=== PATIENT | female | born 1955 | race African-American/Black ===

== ENCOUNTER 2018-10-29 01:06 | Emergency (ER) | payer OTHER ==
[2018-10-29] MEDS ORDERED: ASPIRIN 81 MG TABLET, CHEWABLE PO ONE (03:42)
--- NOTE | 2018-10-29 03:43 | ER Document Report ---
ED Medical Screen (RME) - General Chief Complaint: Chest Pain Stated Complaint: CHEST PAIN Time Seen by Provider: 10/29/18 03:37 Notes: Patient is a 63-year-old female with chief complaint of waking up to feeling like her heart was beating fast and irregularly, she states she had some discomfort in her chest on the right side of her chest, she states that after arrival to the emergency department the sensation stopped. She denies passing o ut, nausea, diaphoresis, shortness of breath. Past medical history of hypertension, type 2 diabetes, denies cardiac history. Denies any current symptoms. TRAVEL OUTSIDE OF THE [place] IN LAST 30 DAYS: No - Related Data Allergies/Adverse Reactions: No Known Allergies Allergy (Unverified 10/29/18 01:10) Physical Exam - Vital signs Vitals: Temp Pulse Resp BP Pulse Ox 98.2 F 90 18 118/67 98 10/29/18 01:22 10/29/18 01:22 10/29/18 01:22 10/29/18 01:22 10/29/18 01:22 - Cardiovascular Rhythm: Regular, Extrasystoles Heart sounds: S1 appreciated, S2 appreciated Course - Re-evaluation Re-evalutation: I have greeted and performed a rapid initial assessment of this patient. A comprehensive ED assessment and evaluation of the patient, analysis of test results and completion of the medical decision making process will be conducted by additional ED providers. - Vital Signs Vital signs: Temp Pulse Resp BP Pulse Ox 98.2 F 90 18 118/67 98 10/29/18 01:22 10/29/18 01:22 10/29/18 01:22 10/29/18 01:22 10/29/18 01:22
[2018-10-29 04:34] LABS: ABSOLUTE BASOPHILS # (AUTO) 0.1 10^3/uL (0.0-0.2); ABSOLUTE EOSINOPHILS # (AUTO) 0.1 10^3/uL (0.0-0.6); ABSOLUTE LYMPHOCYTES (AUTO) 2.4 10^3/uL (0.5-4.7); ABSOLUTE MONOCYTES (AUTO) 0.6 10^3/uL (0.1-1.4); ABSOLUTE NEUT (AUTO) 5.1 10^3/uL (1.7-8.2); BASOPHILS % (AUTO) 0.7 % (0-2); EOSINOPHILS % (AUTO) 0.8 % (0-6); HEMATOCRIT 34.9 % (36.0-47.0); HEMOGLOBIN 11.6 g/dL (12.0-15.5); LYMPHOCYTES % (AUTO) 29.1 % (13-45); MEAN CORPUSCULAR HEMOGLOBIN 26.4 pg (27.0-33.4); MEAN CORPUSCULAR HGB CONC 33.3 g/dL (32.0-36.0); MEAN CORPUSCULAR VOLUME 79 fl (80-97); MONOCYTES % (AUTO) 7.4 % (3-13); PLATELET COUNT 269 10^3/uL (150-450); RED BLOOD COUNT 4.42 10^6/uL (3.72-5.28); RED CELL DISTRIBUTION WIDTH 14.2 % (11.5-14.0); TOTAL CELLS COUNTED % (AUTO) 100 %; WHITE BLOOD COUNT 8.2 10^3/uL (4.0-10.5)
--- NOTE | 2018-10-29 04:51 | RADIOLOGY REPORT (SQ) ---
EXAM DESCRIPTION: XR CHEST 1 VIEW COMPLETED DATE/TME: 10/29/2018 03:42 CLINICAL HISTORY: 63 years, Female, chest pain COMPARISON: None. NUMBER OF VIEWS: One TECHNIQUE: AP view of the chest LIMITATIONS: None. FINDINGS: The lungs are clear. The heart is normal in size. There is no pneumothorax or pleural effusion. There is no acute fracture IMPRESSION: No acute cardiopulmonary abnormality copyright 2010 [employer]- All Rights Reserved
--- NOTE | 2018-10-29 06:06 | EKG REPORT ---
SEVERITY:- NORMAL ECG - SINUS RHYTHM : Confirmed by: Guru Aguirre MD 29-Oct-2018 06:05:48
[2018-10-29 07:08] LABS: CALCIUM 10.9 mg/dL (8.4-10.2)
[2018-10-29 07:09] LABS: ALBUMIN 4.8 g/dL (3.5-5.0); ANION GAP 17 (5-19); ASPARTATE AMINO TRANSFERASE 61 U/L (14-36); BLOOD UREA NITROGEN 34 mg/dL (7-20); CARBON DIOXIDE 23 mmol/L (22-30); CHLORIDE 100 mmol/L (98-107); GLUCOSE 121 mg/dL (75-110); POTASSIUM 3.4 mmol/L (3.6-5.0); SODIUM 139.9 mmol/L (137-145)
[2018-10-29 07:10] LABS: ALANINE AMINOTRANSFERASE < 3 U/L (9-52); ALKALINE PHOSPHATASE 61 U/L (38-126); BILIRUBIN,TOTAL 0.4 mg/dL (0.2-1.3)
[2018-10-29 07:11] LABS: BILIRUBIN,DIRECT 0.4 mg/dL (0.0-0.4); TOTAL PROTEIN 7.9 g/dL (6.3-8.2)
[2018-10-29 08:04] VITALS: BP 123/64
--- NOTE | 2018-10-29 13:16 | ER Document Report ---
Entered by AZAR MENDENHALL SCRIBE 10/29/18 0616 Acting as scribe for:KEELY BURKETT MD ED General - General Chief Complaint: Chest Pain Stated Complaint: CHEST PAIN Time Seen by Provider: 10/29/18 03:37 Primary Care Provider: SOFIA MORGAN PA-C [Primary Care Provider] - Follow up as needed Information source: Patient, Relative, [facility] Records Notes: 63-year-old female with hypertension, coronary artery disease, and hyperlipidemia the presents to the emergency department today with complaints of heart palpitations that began around midnight last night. Patient states she was asleep and these palpitations woke her up. Patient states the palpitations lasted approximately 20 minutes. Patient's significant other at bedside states he has history of A. fib so he states that he "felt her pulse and it did not seem irregular, just fast", although he did not determine an actual pulse. Patient states she did not go back to sleep after this. Patient also has as sociated left-sided parasternal chest wall pain that is exacerbated with breathing. Patient does not take daily aspirin. TRAVEL OUTSIDE OF THE [place] IN LAST 30 DAYS: No - Related Data Allergies/Adverse Reactions: No Known Allergies Allergy (Verified 10/29/18 04:25) Past Medical History - General Information source: Patient, [facility] Records - Social History Smoking Status: Never Smoker Cigarette use (# per day): No Frequency of alcohol use: None Drug Abuse: None Lives with: Spouse/Significant other Family History: Reviewed & Not Pertinent Patient has suicidal ideation: No Patient has homicidal ideation: No - Past Medical History Cardiac Medical History: Reports: Hx Hypertension Pulmonary Medical History: Reports: Hx Asthma Endocrine Medical History: Reports: Hx Diabetes Mellitus Type 2 Surgical Hx: Negative Review of Systems - Review of Systems Constitutional: No symptoms reported EENT: No symptoms reported Cardiovascular: See HPI, Chest pain, Palpitations, Heart racing Respiratory: See HPI, Hurts to breathe Gastrointestinal: No symptoms reported Genitourinary: No symptoms reported Female Genitourinary: No symptoms reported Musculoskeletal: No symptoms reported Skin: No symptoms reported Hematologic/Lymphatic: No symptoms reported Neurological/Psychological: No symptoms reported -: Yes All other systems reviewed and negative Physical Exam - Vital signs Vitals: Temp Pulse Resp BP Pulse Ox 98.2 F 90 18 118/67 98 10/29/18 01:22 10/29/18 01:22 10/29/18 01:22 10/29/18 01:22 10/29/18 01:22 - Notes Notes: Physical Exam: General: Alert, appears well. HEENT: Normocephalic. Atraumatic. PERRL. Extraocular movements intact. Oropharynx clear. Neck: Supple. Non-tender. Respiratory: No respiratory distress. Clear and equal breath sounds bilaterally. Right-sided chest wall, left-sided chest wall, and sternal tenderness with palpation. Reproducible chest pain. Cardiovascular: Regular rate and rhythm. Abdominal: Normal Inspection. Non-tender. No distension. Normal Bowel Sounds. Back: Non-tender. No deformity or step off. Extremities: Moves all four extremities. Upper extremities: Normal inspection. Normal ROM. Lower extremities: Normal inspection. No edema. Normal ROM. Neurological: Normal cognition. AAOx4. Normal speech. Psychological: Normal affect. Normal Mood. Skin: Warm. Dry. Normal color. Course - Re-evaluation Re-evalutation: 10/29/18 07:58 I discussed the patient's BUN and creatinine with her and her spouse and gave him copies of the lab work to follow-up with her primary care provider. G is normal. The patient has not had the palpitations since shortly after midnight. Troponins are negative. Chest wall is quite tender to palpate. - Vital Signs Vital signs: Temp Pulse Resp BP Pulse Ox 97.8 F 74 15 115/60 98 10/29/18 04:09 10/29/18 04:09 10/29/18 06:00 10/29/18 06:00 10/29/18 06:00 - Laboratory Result Diagrams: 10/29/18 04:19 10/29/18 04:19 Laboratory results interpreted by me: 10/29/18 10/29/18 04:19 04:19 Hgb 11.6 L Hct 34.9 L MCV 79 L MCH 26.4 L RDW 14.2 H Potassium 3.4 L BUN 34 H Est GFR ( Amer) 56 L Est GFR (Non-Af Amer) 46 L Glucose 121 H Calcium 10.9 H AST 61 H ALT < 3 L - Diagnostic Test Radiology reviewed: Image reviewed, Reports reviewed - Chest x-ray is unremarkable - EKG Interpretation by Ia EKG shows normal: Sinus rhythm, [place], Intervals, QRS Complexes, ST-T Waves Rate: Normal - 86 Rhythm: NSR Discharge - Discharge Clinical Impression: Heart palpitations, Chest wall pain, Dehydration Condition: Stable Disposition: HOME, SELF-CARE Additional Instructions: Palpitations (Irregular/Rapid Heartrate) Irregular or rapid heartbeat is called "palpitation." To diagnose the cause of palpitation, we have to "catch it in the act" with an EKG. Sinus Tachycardia: This is a rapid (but NORMAL) rhythm that can be due to fever, pain, anxiety, lack of sleep, over-exertion, or drugs. Cold medications, caffeine, and diet pills are particularly likely to cause tachycardia. Usually, all that's required is rest, reassurance, and avoiding caffeine, alcohol, nicotine, and unnecessary medicines. Paroxysmal Atrial Tachycardia (PAT): This abnormally rapid heartbeat is caused by a "short circuit" in the electrical system of the heart. It is not dangerous, unless other heart disease is present. These attacks of PAT may occur occasionally for years. Medication is available for treatment. Paroxysmal Atrial Fibrillation or Atrial Flutter: This is irregular electrical activity in the upper heart chamber. These abnormal rhythms often occur with valve disease or in hearts damaged by hardening of the arteries. These rhythms usually require further testing, for example a cardiac echo. Premature Beats: Extra beats occur more commonly after caffeine, nicotine, alcohol, cold pills, diet pills. Emotional stress or fatigue also provoke them. Extra beats are only dangerous when heart disease is present. They usually need no treatment. If they're frequent, or if evidence of heart disease de velops, medication can be given to suppress them. If we were unable to "catch" the palpitations on EKG, you should try to get an EKG immediately if the symptoms begin again. Contact the physician at once if you develop persistent lightheadedness, shortness of breath, chest pain, or swelling of the ankles. Chest Wall Pain Your chest pain has been diagnosed as coming from the chest wall. This is often caused by straining the muscles or joints in the chest during physical activity, direct trauma, coughing, or vigorous vomiting. Persons with arthritis are especially prone to this type of pain, due to inflammation of the cartilage joints near the breast bone. Occasionally, no cause can be found. Rest from strenuous physical activity. This kind of chest pain is usually made worse by movement of the chest. Depending on the symptoms, we may prescribe medicine for pain, muscle relaxation, and antiinflammatory effects. If the pain is new, and seems to be due to muscle strain, cold packs can help. Otherwise, apply gentle warmth to the painful area for 15 minutes every hour or two. You should contact the doctor immediately if things change. Further evaluation is needed if you develop a fever or cough, if the nature of the pain changes, or if you become short of breath. * Drink plenty of fluids today and get plenty of rest. Take Tylenol for pain as needed. Do not take medications such as Motrin or Aleve until you follow-up with your primary care provider to discuss your lab work. RETURN TO THE EMERGENCY ROOM IF ANY NEW OR WORSENING SYMPTOMS. Forms: Return to Work Referrals: SOFIA MORGAN PA-C [Primary Care Provider] - Follow up as needed Scribe Attestation: 10/29/18 07:56 I personally performed the services described in the documentation, reviewed and edited the documentation which was dictated to the scribe in my presence, and it accurately records my words and actions. I personally performed the services described in the documentation, reviewed and edited the documentation which was dictated to the scribe in my presence, and it accurately records my words and actions.
== END 2018-10-29 08:30 | disposition home or self-care (01) ==
LOC: ER 01:06
DX: R00.2 Palpitations (principal); I25.10 Atherosclerotic heart disease of native coronary artery without angina pectoris; I10 Essential (primary) hypertension; R07.89 Other chest pain; E86.0 Dehydration; E11.9 Type 2 diabetes mellitus without complications; J45.909 Unspecified asthma, uncomplicated
CPT/HCPCS: 36415; 71045; 80053; 83735; 84443; 84484; 85025; 93005; 93010; 99285